=== PATIENT | female | born 1935 | race Caucasian/White ===

== ENCOUNTER 2019-10-05 20:37 | Emergency (ER) | payer MEDICARE, OTHER ==
[2019-10-05 21:11] LABS: Red Blood Cell (RBC) Count 3.99 mill/uL (4.20-5.40); White Blood Cell (WBC) Count 7.5 thou/uL (4.8-10.8)
[2019-10-05 21:15] LABS: INR-International Normal Ratio 0.9; Prothrombin Time 12.3 sec (12.0-14.7)
[2019-10-05 21:29] LABS: ALT (SGPT) 11 U/L (8-55); AST (SGOT) 17 U/L (5-34); Albumin 3.7 g/dL (3.4-4.8); Alkaline Phosphatase 89 U/L (40-110); Anion Gap 12 mmol/L (10-20); BUN (Urea Nitrogen) 15 mg/dL (9.8-20.1); Bilirubin, Total 0.5 mg/dL (0.2-1.2); Calc. Creatinine Clearance 0 mL/min (70-130); Carbon Dioxide 25 mmol/L (23-31); Chloride 108 mmol/L (98-107); Estimated GFR-MDRD 52; Globulin 2.9 g/dL (2.4-3.5); Glucose 99 mg/dL (83-110); Potassium 3.9 mmol/L (3.5-5.1); Protein, Total 6.6 g/dL (6.0-8.3); Sodium 141 mmol/L (136-145)
[2019-10-05 21:34] LABS: #Eosinphils 0.3 thou/uL (0.0-0.7); #Lymphocytes 1.9 thou/uL (1.20-3.40); #Monocytes 0.4 thou/uL (0.11-0.59); #Neutrophils 4.9 thou/uL (1.40-6.50); %Basophils 0.6 % (0.0-1.0); %Eosinophils 3.6 % (0.0-10.0); %Lymphocytes 24.8 % (21.0-51.0); %Monocytes 5.5 % (0.0-10.0); %Neutrophils 65.6 % (42.0-75.0); MDiff Complete? YES; Macrocytosis SLIGHT = 6-15 cells (100X) (0-5/hpf); Mean Corpuscular HGB CONC 33.4 g/dL (32.0-36.0); Mean Corpuscular Hemoglobin 35.2 pg (27.0-31.0); Mean Platelet Volume 7.6 fL (7.4-10.4); Platelet Count 211 thou/uL (130-400); Platelet Morphology Comment Appears Adequate; RBC Distribution Width 11.9 % (11.5-14.5)
--- NOTE | 2019-10-05 21:35 | RAD ---
XR Chest 1 View Portable History: Fall Comparison: None. Findings: Severe fibrotic change throughout the lungs, greatest in the left lung. Volume loss of the left hemithorax with leftward displacement of the mediastinum. No pneumothorax. No acute displaced rib fracture. Impression: 1. Severe pulmonary fibrosis. No acute intrathoracic abnormality. 2. Likely confluent fibrosis along the left heart border and less likely a nodule. Nonemergent follow -up chest CT recommended.
--- NOTE | 2019-10-05 21:37 | RAD ---
XR Pelvis AP STANDARD History: Fall. Hip pain Comparison: None. Findings: There is a fracture through the base of the right femoral neck extending into the lesser tr ochanter which is medially displaced. Old left pubic rami fractures. No definite right-sided pubic ramus fracture. Bones are demineralized. No left femoral neck or intertrochanteric fracture. Impression: Fracture through the base right femoral neck extending to the lesser trochanter.
--- NOTE | 2019-10-05 21:38 | RAD ---
XR Femur Rt 2 View STANDARD History: Pain after fall Comparison: None. Findings: Fracture through the base of right femoral neck extending into the lesser trochanter displa richard medially. Remainder of the femur is intact. No significant knee joint effusion. High-grade medial compartment knee joint space narrowing. Chondrocalcinosis of both menisci. Impression: Fractures of the base right femoral neck extending into the medially displaced lesser tro chanter.
[2019-10-05] MEDS ORDERED: Morphine 4 MG/ML VIAL ONE (22:54)
== END 2019-10-06 00:33 | disposition short-term general hospital (02) ==
LOC: ERS 20:37
DX: S72.041A Displaced fracture of base of neck of right femur, initial encounter for closed fracture (principal); Y92.096 Garden or yard of other non-institutional residence as the place of occurrence of the external cause; W01.0XXA Fall on same level from slipping, tripping and stumbling without subsequent striking against object, initial encounter
CPT/HCPCS: 36415; 71045; 72170; 80053; 85025; 85610; 86850; 86900; 86901; 93005; J2270